=== PATIENT | female | born 1970 | race Caucasian/White ===

== ENCOUNTER 2023-08-06 14:55 | Emergency (ER) | payer OTHER, SELFPAY ==
--- NOTE | 2023-08-06 14:56 | ED.DENTAL ---
HPI - Dental/Oral General Stated complaint: front tooth pain Time Seen by Provider: 08/06/23 14:56 Source: patient Mode of arrival: ambulatory Limitations: no limitations History of Present Illness HPI Narrative: Roma is a 53-year-old female patient presenting to the clinic today with complaints of dental pain to upper front teeth and swelling to the left side of her face. She reports that the symptoms have been going on for few days. Applied a heating pad to her face yesterday and this seemed to help. States she has taken some Aleve and antibiotics that a friend had. Related Data Home Medications Medication Instructions Recorded Confirmed alprazolam 1 mg tablet See Rx Instructions .Route .COMPLEX 08/06/23 08/06/23 dextroamphetamine-amphetamine 20 20 mg PO DAILY 08/06/23 08/06/23 mg tablet Allergies Allergy/AdvReac Type Severity Reaction Status Date / Time No Known Allergies Allergy Verified 08/06/23 15:18 Review of Systems Review of Systems: Pertinent positives per HPI. Patient denies any fever, chills, rash, headache, visual changes, dizziness, cough, runny nose, sore throat, shortness of breath, chest pain, palpitations, nausea, vomiting, diarrhea, constipation, abdominal pain, or any urinary issues. PMFSH Comments At the time of my signature, I reviewed and agree with the nursing past medical, surgical, social, and family history. There is no relevant family history pertinent to the patient complaint. Exam Narrative: General: Well-developed, well nourished, in no apparent distress Head: Normocephalic, atraumatic, swelling noted around the left periorbital area with mild redness, tenderness to palpation over the left inferior orbit and left maxilla Eyes: Pupils equally round and reactive to light bilaterally, EOM intact, sclera and conjunctive clear, no discharge, lids normal Ears: TMs intact and clear, ear canals clear, no drainage, grossly hearing normal. Nose: Nares patent, no discharge, no inflammation, no sinus tenderness. Mouth: Oropharynx without lesions or masses, poor dentition, MMM. Swelling, redness, fluctuance, and tenderness to palpation to the mid upper gum above #8 & 9 teeth, fluctuance, redness, and tenderness to palpation to the roof of the mouth as well. Neck: Supple, trachea midline, no enlargement of anterior or posterior cervical nodes, no thyroid masses or goiter palpable. Cardio: Regular rate and rhythm, s1 and s2 normal, no murmur appreciated. Resp: Clear to auscultation bilaterally anteriorly and posteriorly, no rhonchi, rales, wheezing or rubs Course Course Emergency Course: Portions of this record may have been created with voice recognition software. Level of Care: Express Care Visit Vital Signs Vital signs: Vital signs reviewed Transfer Transfered to: [facility] Transportation: Other (private car) Transfer rationale: dental abscess, periorbital swelling/early cellulitis Accepting physician: Chuck Transfer comments: private car MDM - Dental/Oral MDM Narrative Medical decision making narrative: At the time of visit patient is resting on the exam table. Plan: Recommend transfer to the emergency room as I suspect patient has a dental abscess/left periorbital edema/swelling. Patient would like to be transferred to [facility]. Report called to Chuck at [facility] and she accepts patient for transfer. Differential Diagnosis Differential diagnosis: Likely gingival abscess, dental caries, toothache, dental abscess, fracture of tooth, aphthous ulcer and other (Periorbital edema, periorbital cellulitis, maxillary abscess) Discharge Plan Discharge Clinical Impression: Abscess, dental, Periorbital swelling Patient Disposition: Acute Care Hospital Condition: Stable Follow-up/Referrals: Darin Hilton MD [Primary Care Provider] - Time of Disposition: 15:25 Quality NIHSS Nursing Documentation ED NIHSS nursing documentation: reviewed
[2023-08-06 15:07] VITALS: BP 125/76; PULSE 77; RESP 16; TEMP 37.2; O2SAT 98
== END 2023-08-06 15:24 | disposition short-term general hospital (02) ==
PROVIDERS: Emergency Provider Nurse Practitioner Family; PCP Emergency Medicine
DX: K04.7 Periapical abscess without sinus (principal); H05.222 Edema of left orbit; F90.9 Attention-deficit hyperactivity disorder, unspecified type
CPT/HCPCS: 99212; G0463

== ENCOUNTER 2023-08-06 15:43 | Emergency (ER) | payer OTHER, SELFPAY ==
--- NOTE | ~2023-08-06 | CT_ITS ---
CT scan of the Neck Technique: 2.5 mm axial scans were obtained through the neck after intravenous administration of 75 c c Omnipaque 350. Coronal and sagittal reconstructions of the neck were obtained. Dose reduction techn ique was used on this scan by utilizing automated exposure control and iterative reconstruction techn ique. The dose-length product (DLP) was 248.52 mGy-cm. Clinical History: Dental abscess Findings: There is no evidence of any significant cervical lymphadenopathy. Several small, nonenlarged jugulo- digastric and posterior cervical lymph nodes are noted bilaterally. Parapharyngeal spaces appear norm al bilaterally. The parotid and submandibular glands appear normal. The pharyngeal mucosal spaces appear normal. No soft tissue masses are seen in the neck. The thyroid gland appears normal. Images of the lung apices reveal no abnormalities. There is mild le ft maxillary sinus disease. Remaining paranasal sinuses are clear. Impression: No significant abnormalities noted. Reviewed, dictated and finalized at [facility]. [employer] Impression: No significant abnormalities noted.
[2023-08-06 15:47] VITALS: BP 113/77; PULSE 71; RESP 16; TEMP 36.7; O2SAT 100
[2023-08-06 17:02] LABS: Basophils Percent Auto 0.3 % (0.2-1.2); Eosinophils Absolute Auto 0.1 K/mm3 (0-0.3); Eosinophils Percent Auto 0.6 % (0-4.4); Hematocrit 40.6 % (37.0-47.0); Hemoglobin 13.2 g/dL (12.0-15.0); Immature Granulocyte Absolute 0.04 K/mm3 (0.00-0.031); Immature Granulocyte Percent A 0.3 % (0-0.5); Lymphocytes Absolute Auto 1.91 K/mm3 (0.9-3.2); Lymphocytes Percent Auto 16.4 % (18.3-44.2); Mean Corpuscular HGB Conc 32.5 g/dl (32-36); Mean Corpuscular Hemoglobin 31.7 pg (26-34); Mean Corpuscular Volume 97.6 fl (80-100); Mean Platelet Volume 9.5 fl (7.4-10.4); Monocytes Absolute Auto 0.8 K/mm3 (0.1-0.6); Monocytes Percent Auto 6.6 % (2.6-8.5); Neutrophils Absolute Auto 8.8 K/mm3 (1.3-6.7); Neutrophils Percent Auto 75.8 % (45.5-73.1); Platelet Count Result 343 k/mm3 (150-375); Red Blood Count 4.16 M/mm3 (4.2-5.4); Red Cell Distribution Width 13.7 % (11.5-14.5); White Blood Count 11.7 K/mm3 (4.5-10.0)
[2023-08-06 17:11] LABS: Anion Gap 6 mmol/L (8-16); Blood Urea Nitrogen 15 mg/dL (7-17); Calcium 9.4 mg/dL (8.4-10.2); Carbon Dioxide 30 mmol/L (22-30); Chloride 101 mmol/L (98-107); Estimated Glomerular Filt Rate > 60; Glucose 124 mg/dL (65-110); Potassium 3.4 mmol/L (3.4-5.0); Sodium 137 mmol/L (137-145)
--- NOTE | 2023-08-06 17:19 | ED.DENTAL ---
HPI - Dental/Oral General Chief complaint: Dental/Oral Stated complaint: Dental pain Time Seen by Provider: 08/06/23 16:32 History of Present Illness HPI Narrative: Patient is a 53-year-old female presenting with dental abscess. States that she has had abscesses affecting her left front upper tooth before. States this 1 started several days ago and has become increasingly swollen. She was seen at urgent care earlier who advised that she come in to the ER for imaging. States that she has been having a lot of left-sided facial swelling. No difficulty swallowing or breathing. No systemic symptoms. Has not seen a dentist for several years. Related Data Home Medications Medication Instructions Recorded Confirmed alprazolam 1 mg tablet See Rx Instructions .Route .COMPLEX 08/06/23 08/06/23 dextroamphetamine-amphetamine 20 20 mg PO DAILY 08/06/23 08/06/23 mg tablet Allergies Allergy/AdvReac Type Severity Reaction Status Date / Time No Known Allergies Allergy Verified 08/06/23 15:18 Review of Systems Review of Systems: All systems reviewed & are unremarkable except as noted in HPI and below Exam Narrative: GENERAL: Well-appearing, well-nourished, and in no acute distress. HEAD: Normocephalic, atraumatic. EYES: PERRLA and EOMI. ENT: dental abscess superior to tooth 10; R cheek mildly erythematous and swollen NECK: Supple. CHEST: Clear to auscultation. No respiratory distress. HEART: Regular rate and rhythm EXTREMITIES: Normal range of motion. No edema. SKIN: Warm, dry, no rash. NEURO: No focal deficits. Alert and oriented x3. PSYCH: Normal mood and affect. Course Vital Signs Vital signs: Vital Signs Temperature 98.1 F 08/06/23 15:47 Pulse Rate 71 08/06/23 15:47 Respiratory Rate 16 08/06/23 15:47 Blood Pressure 113/77 08/06/23 15:47 Pulse Oximetry 100 08/06/23 15:47 Temperature 98.1 F 08/06/23 15:47 Pulse Rate 77 08/06/23 17:49 Respiratory Rate 18 08/06/23 17:49 Blood Pressure 141/85 H 08/06/23 17:49 Pulse Oximetry 100 08/06/23 17:49 Procedures Abscess I/D oral: Date of Incision: 08/06/23 Time of Incision: 20:11 Local Anesthetic: other anesthetic Technique: incised with #11 blade Amount of fluid expressed (mL): 4 Irrigation: No Packing used?: none I&D Results: Pus and Blood Abcess I&D Additional Comments: tolerated well MDM - Dental/Oral MDM Narrative Medical decision making narrative: 53-year-old female presenting with left upper dental abscess. Vitals are stable. Exam remarkable for the above. Blood work with leukocytosis. CT shows no evidence of deeper infection. Abscess was drained without complication. Please see procedure note below for further detail. Advised close dental follow-up. Will start her on augmentin. Appropriate return precautions given. Patient is agreeable with this plan. Discharged in stable condition. Differential Diagnosis Differential diagnosis: Likely gingival abscess, dental caries, toothache and dental abscess Medical Records Attestation: I reviewed the patient's medical records. Lab Data Attestation: I reviewed the patient's lab results. 08/06/23 16:57 08/06/23 16:57 Labs: Lab Results 08/06/23 Range/Units 16:57 WBC 11.7 H (4.5-10.0) K/mm3 RBC 4.16 L (4.2-5.4) M/mm3 Hgb 13.2 (12.0-15.0) g/dL Hct 40.6 (37.0-47.0) % MCV 97.6 (80-100) fl MCH 31.7 (26-34) pg MCHC 32.5 (32-36) g/dl RDW 13.7 (11.5-14.5) % Plt Count 343 (150-375) k/mm3 MPV 9.5 (7.4-10.4) fl Immature Gran % (Auto) 0.3 (0-0.5) % Neut % (Auto) 75.8 H (45.5-73.1) % Lymph % (Auto) 16.4 L (18.3-44.2) % Ramsey % (Auto) 6.6 (2.6-8.5) % Eos % (Auto) 0.6 (0-4.4) % Baso % (Auto) 0.3 (0.2-1.2) % Lymph # (Auto) 1.91 (0.9-3.2) K/mm3 Ramsey # (Auto) 0.8 H (0.1-0.6) K/mm3 Eos # (Auto) 0.1 (0-0.3) K/mm3 Baso # (Auto) 0.0
[2023-08-06] MEDS: SODIUM CHLORIDE 0.9% IV 1,000 ML 999 ML IV CONT (17:38)
[2023-08-06] MEDS: AMPICILLIN SULB 1.5 GM/NS 50ML 1.5 GM/50 ML VIAL IVPB (17:39)
[2023-08-06] MEDS: KETOROLAC 30 MG/ML VIAL (*BKC) IV PUSH (17:39)
[2023-08-06 17:49] VITALS: BP 141/85; PULSE 77; RESP 18; O2SAT 100
== END 2023-08-06 20:45 | disposition home or self-care (01) ==
PROVIDERS: Emergency Provider Emergency Medicine; PCP Emergency Medicine
DX: K04.7 Periapical abscess without sinus (principal)
CPT/HCPCS: 36415; 41800; 70491; 80048; 85025; 96365; 96375; 99284; A9270; J0295; J1885; J7030; Q9967